=== PATIENT | male | born 1985 | race Caucasian/White ===

== ENCOUNTER 2018-07-28 15:47 | Emergency (ER) | payer SELFPAY ==
[~2018-07-28] VITALS: Wt 102.8 kg
[2018-07-28] MEDS ORDERED: ACETAMINOPHEN 500 MG TAB PO STA (16:49)
--- NOTE | 2018-07-28 18:24 | ERD ---
ER Documentation Chief Complaint Chief Complaint LAC ON RIGHT HAND NEAR BASE OF INDEX FINGER HPI This is a 32-year-old male patient presents emergency room with complaint of laceration to right second finger status post cutting with salt while cutting branches at home. Occurred approximately 2 hours [employer]. Full movement, minimal pain, no paresthesia, tetanus shot up-to-date. No chronic medical problems. ROS All systems reviewed and are negative except as per history of present illness. Allergies Allergies: Coded Allergies: No Known Allergy (Unverified , 07/28/18) FmHx Family History: No diabetes, No coronary disease, No other Physical Exam Vitals Vital Signs Date Temp Pulse Resp B/P (MAP) Pulse Ox O2 O2 Flow FiO2 Time Delivery Rate 07/28/18 99.2 91 17 155/105 98 15:55 (122) Physical Exam Const: No acute distress Head: Atraumatic Eyes: Normal Conjunctiva ENT: Normal External Ears, Nose and Mouth. Neck: Full range of motion. No meningismus. Resp: Clear to auscultation bilaterally Cardio: Regular rate and rhythm, no murmurs Abd: Soft, non tender, non distended. Normal bowel sounds Skin: No petechiae or rashes Back: No midline or flank tenderness Ext: No cyanosis, or edema. RIGHT 2ND FINGER: 5 cm x 0.3 cm lac to dorsal surface, FROM, no paresthesia, bleeding controlled Neur: Awake and alert Psych: Normal Mood and Affect Results 24 hrs Current Medications Medications Dose Sig/Kenny Start Time Status Last (Trade) Ordered Route PRN Stop Time Admin Dose Reason Admin 1,000 mg ONCE STAT 07/28/18 DC 07/28/18 Acetaminophen PO 16:49 17:10 (Tylenol 07/28/18 16:51 Tab) Procedures/MDM This is a 32-year-old male patient who presents to the emergency room with complaint of laceration to right first finger. ED COURSE: The patient was stable throughout ED course. DIAGNOSTIC IMAGING: Read by radiologist. Not indicated PROCEDURES: Laceration Repair by me: Anesthesia: 1% lidocaine locally Location: dorsal surface right index finger Tendon/Joint/Nerves: No injury Foreign body: None detected after copious irrigation and exploration Technique: 5 Simple Interrupted Sutures, 2 steri-strips Complexity: No subcutaneous sutures/mucosal repair/edge excision Post Closure Length: 6 cm Patient's bleeding was easily controlled. Bulky gauze dressing and finger splint placed. MEDICATIONS GIVEN: Tylenol Patient tolerated medication well with no adverse reactions. Patient reported improvement in pain. MDM: This patients soft tissue injury appears to be appropriate for outpatient treatment. No evidence of compartment syndrome, neurologic injury, vascular injury, open joint, tendon laceration, or foreign body. Patient is appropriate for outpatient follow up.A serious, rapidly progressive infectious process is unlikely based upon the patients presentation and appearance. Patient has been provided with instructions on wound care, analgesia, follow-up, signs and symptoms of infection. DISPOSITION: The patient has been discharge home to follow-up with community physician. Departure Diagnosis: Primary Impression: Laceration Condition: Stable Patient Instructions: Laceration, Hand Referrals: [facility] YOU HAVE RECEIVED A MEDICAL SCREENING EXAM AND THE RESULTS INDICATE THAT YOU DO NOT HAVE A CONDITION THAT REQUIRES URGENT TREATMENT IN THE EMERGENCY DEPARTMENT. FURTHER EVALUATION AND TREATMENT OF YOUR CONDITION CAN WAIT UNTIL YOU ARE SEEN IN YOUR DOCTORS OFFICE WITHIN THE NEXT 1-2 DAYS. IT IS YOUR RESPONSIBILITY TO MAKE AN APPOINTMENT FOR FOLOW-UP CARE. IF YOU HAVE A PRIMARY DOCTOR --you should call your primary doctor and schedule an appointment IF YOU DO NOT HAVE A PRIMARY DOCTOR YOU CAN CALL OUR PHYSICIAN REFERRAL HOTLINE AT IF YOU CAN NOT AFFORD TO SEE A PHYSICIAN YOU CAN CHOSE FROM THE FOLLOWING [facility] [address] [facility]. [facility] [address] [facility] [facility] [address] [facility] [facility] [address] [facility]. [facility] [address] [facility]. [facility]. [address] Additional Instructions: Thank you very much for allowing us to participate in your care. Your health and safety is our top priority at [facility]. Call your primary care doctor TOMORROW for an appointment during the next 2-4 days and bring all the information and medications prescribed. Have prescriptions filled and follow precisely the directions on the label. If the symptoms get worse and your provider is unavailable, return to the Emergency Department immediately. HAVE SUTURES REMOVED IN 7-10 DAYS. AVOID SOAKING WOUND, KEEP CLEAN AND DRY. WEAR FINGER SPLINT FOR 5-7 DAYS. RETURN TO ER WITH SIGNS OF INFECTION: REDNESS, SWELLING, FEVER, SEVERE PAIN. USE IBUPROFEN OR ACETAMINOPHEN FOR DISCOMFORT. BAKARI TREJO NP July 28, 2018 18:24
[2018-07-28 18:50] VITALS: BP 160/102; PULSE 81; RESP 18
== END 2018-07-28 18:52 | disposition home or self-care (01) ==
LOC: FTE 15:47
DX: S61.210A Laceration without foreign body of right index finger without damage to nail, initial encounter (principal); W26.8XXA Contact with other sharp object(s), not elsewhere classified, initial encounter; Y92.009 Unspecified place in unspecified non-institutional (private) residence as the place of occurrence of the external cause